=== PATIENT | female | born 1950 | race Caucasian/White ===

== ENCOUNTER 2023-11-03 12:40 | Outpatient (CLI) | payer OTHER ==
[~2023-11-03 12:40] MED LIST: ACET-2006 PO; BACL-11 PO; CHOL20004 PO; LYR75C PO; MAGN250T29 PO
== END 2023-11-04 02:43 | disposition home or self-care (01) ==
LOC: MRI 12:40
PROVIDERS: ATTEND Pediatrics Sports Medicine
DX: M19.011 Primary osteoarthritis, right shoulder (principal); M75.81 Other shoulder lesions, right shoulder; M25.511 Pain in right shoulder; M25.512 Pain in left shoulder; M75.22 Bicipital tendinitis, left shoulder; M47.22 Other spondylosis with radiculopathy, cervical region; R51.9 Headache, unspecified; M79.10 Myalgia, unspecified site; M54.2 Cervicalgia
CPT/HCPCS: 73221

== ENCOUNTER 2025-01-24 07:45 | Emergency (ER) | payer MEDICARE, MEDICAID ==
[~2025-01-24] VITALS: Ht 170.2 cm; Wt 72.7 kg
[2025-01-24 08:01] VITALS: BP 172/106; PULSE 75; O2SAT 97
--- NOTE | 2025-01-24 09:34 | Physician Documentation ---
History of Present Illness ~ Chief Complaint: Ankle pain Stated Complaint: ANKLE PAIN Time Seen by MD: 08:38 Primary Medical Doctor: ELISA HPI 74-year-old female presents to the ED with a complaint of left ankle pain to after rolling her ankle this morning. She is able to walk on her heel but not on the ball of her foot. Day of Onset: Jan 24, 2025 Tetanus witin 5 years: Yes Medication Reconciliation Allergies: Coded Allergies: codeine (Verified Allergy, Unknown, NAUSEA,HIVES,ITCH, 01/24/25) fentanyl (Verified Allergy, Unknown, NAUSEA/BLACK OUT, 01/24/25) methadone (Verified Allergy, Unknown, NAUSEA, 01/24/25) morphine (Verified Allergy, Unknown, NAUSEA/BLACK OUT, 01/24/25) Scheduled Baclofen (Baclofen), 1 TAB PO DAILY, (Reported) Cholecalciferol (Vitamin D), 1 TAB PO DAILY, (Reported) Magnesium Oxide (Magnesium), 1 TAB PO DAILY, (Reported) Scheduled PRN Acetaminophen (Acetaminophen Extra Strength), 3 TAB PO PRN PRN for pain, (Reported) Pregabalin (LYRICA capsule), 2 CAP PO DAILY PRN for PRN, (Reported) Past Medical History Past Medical History: GERD, Chronic Back Pain, Osteopenia Past Surgical History: orthopedic surgeries Alcohol Use: Occasionally Drug Use: none Lives with: Alone Lives In: Home Occupation: disabled Review of Systems All Other Systems at this time: Reviewed and Negative ROS As stated above in the HPI, otherwise all systems are reviewed and negative. Physical Exam Vital Signs: Temperature: 98.0, Source: Temporal, Heart Rate: 75, Respiratory Rate: 18, BP: 172/106, Pulse Oximetry: 97, Weight: 72.730 Physical Exam General: Alert, no apparent distress. t. Extremities: Moderate swelling in his developing ecchymosis on the lateral aspect of the left ankle, no deformity Neurologic: Oriented x4. Psychiatric: Normal mood and affect. Skin: Normal color, warm and dry. No edema, no ecchymosis. Progress Results/Orders Results/Orders Orders - HARISH HALEY NP Ortho Orders (01/24/25 ) Completed Orders - HARISH HALEY NP Ketorolac Trometh 15mg/Ml Vial (Toradol (01/24/25 09:35) Vital Signs 01/24/25 08:01 Temp 98.0 Pulse 75 Resp 18 B/P (MAP) 172/106 Pulse Ox 97 Medical Decision Making Findings Patient presents with a suspected ankle sprain. did not Appreciate any signs of acute fracture in her x-ray. The patient to utilize the brace given and take i buprofen as directed Ankle Diff Dx:Considerations: Include: Abrasion, Arthritis, Contusion, DJD, Fracture-metatarsal, Fracture-fibula, Fracture-tarsal, Fracture-tibia, Gout, Hematoma, Laceration, Malunion, Neurovascular injury, Nonunion, Open fracture, Osteomyelitis, Rheumatoid arthritis, Sprain, Septic, Ulcer, Other Departure Disposition: HOME / SELF CARE / HOMELESS Impression: Primary Impression: Sprain of ankle Condition: Stable Discharge Instructions: Ankle Sprain Additional Instructions: Use the ankle brace provided and take tylenol as directed Referrals: NO PRIMARY CARE PROVIDER (PCP) Signature Scribe Signature: h Attestation: The note accurately reflects work and decisions made by me.Harish Stringer NP 01/24/25 09:33 HARISH HALEY NP Jan 24, 2025 09:34
[2025-01-24 09:58] VITALS: RESP 16
[2025-01-24] MEDS: ketorolac trometh 15mg/ml vial 15 MG/ML ML IM ONE (09:58)
[2025-01-24 10:04] VITALS: TEMP 98
--- NOTE | 2025-01-24 11:52 | RADIOLOGY REPORT ---
EXAM: DI ANKLE, COMPLETE(3VW MIN) CLINICAL INDICATION: LT.ANKLE PAIN ROLLING IT TECHNIQUE: DI ANKLE, COMPLETE(3VW MIN) Comparison: None FINDINGS/IMPRESSION: There is no evidence of acute fracture or dislocation. The visualized joint space is well maintained. The alignment is anatomical. There is no radiopaque foreign body.
== END 2025-01-24 10:05 | disposition home or self-care (01) ==
LOC: ER 07:46
DX: S93.402A Sprain of unspecified ligament of left ankle, initial encounter (principal); Z88.5 Allergy status to narcotic agent; X58.XXXA Exposure to other specified factors, initial encounter; Y93.89 Activity, other specified; Y92.89 Other specified places as the place of occurrence of the external cause; Y99.8 Other external cause status
CPT/HCPCS: 29540; 73610; 96372; 99284; J1885; L1930

== ENCOUNTER 2025-02-14 14:00 | Outpatient (CLI) | payer MEDICARE, MEDICAID ==
--- NOTE | 2025-02-14 18:41 | RADIOLOGY REPORT ---
PROCEDURE: MR MRI LUMBAR SPINE INDICATION: OTHER LOW BACK PAIN//RIGHT HIP PAIN Exam Date: 02/14/2025 03:44 PM COMPARISON: None TECHNIQUE: MRI lumbar spine without intravenous contrast. FINDINGS: Grade 1 retrolisthesis of L1 on L2. There are degenerative endplate changes including modic endpla te changes with anterior and lateral osteophytes throughout the lumbar spine. The visualized distal s stephanie cord and conus medullaris are within normal limits. The conus medullaris appears to terminate within normal limits. The visualized retroperitoneal and paraspinal soft tissues are unremarkable. The following axial levels are detailed below: T12-L1: There is a mild circumferential disc bulge. No significant central canal or neuroforaminal s tenosis. L1-L2: There is a mild circumferential disc bulge. No significant central canal or neuroforaminal s tenosis. L2-L3: There is a mild circumferential disc bulge. No significant central canal or neuroforaminal s tenosis. L3-L4: There is a moderate circumferential disc bulge complicated by facet arthropathy associated w ith mild to moderate right neuroforaminal stenosis. No significant central canal stenosis. L4-L5: There is a mild circumferential disc bulge. No significant central canal or neuroforaminal s tenosis. L5-S1: There is a moderate circumferential disc bulge complicated by facet arthropathy associated wi th mild to moderate bilateral neuroforaminal stenosis. No significant central canal stenosis. IMPRESSION: 1. Mild degenerative disease. No significant central canal stenosis. Neural foraminal stenosis as a bennie. HS:Y
--- NOTE | 2025-02-15 06:16 | RADIOLOGY REPORT ---
CLINICAL INDICATION: OTHER LOW BACK PAIN//RIGHT HIP PAIN COMPARISON: None. TECHNIQUE: Multiplanar, multi-sequence MRI of the right hip was performed without intravenous contrast. Contralateral hip is included on the large [id number] images. Contrast: None INTERPRETATION: Joint space: There is no right effusion. Contralateral hip grossly unremarkable. Bones and articular cartilage: There is no fracture, marrow replacing lesion or avascular necrosis. The alignment is normal. There is right hip joint space narrowing. No full-thickness chondral defect but there is diffuse chondral thinning on both sides of the right hip joint. Mild subchondral bone marrow edema in the acetabulum. Tendons, muscles and bursae: There is no tendon tear. Thickening of the bilateral common hamstring tendons on the axial T2 weighted images suggesting tendinosis. Regional muscles are normal in bulk an d signal characteristics. No bursitis. Acetabular labrum: Chronic tear of the anterior superior right acetabular labrum. IMPRESSION: 1. Mild right hip osteoarthritis. 2. Mild tendinosis of the bilateral common hamstring tendons. No tendon tear. 3. Chronic tear of the anterior superior right acetabular labrum.
== END 2025-02-14 23:00 | disposition home or self-care (01) ==
LOC: MRI02 14:00
PROVIDERS: ATTEND Nurse Practitioner Adult Health
DX: S73.191A Other sprain of right hip, initial encounter (principal); M25.551 Pain in right hip; M54.59 Other low back pain; R20.2 Paresthesia of skin; M16.11 Unilateral primary osteoarthritis, right hip; M67.853 Other specified disorders of tendon, right hip; X58.XXXA Exposure to other specified factors, initial encounter; Y93.89 Activity, other specified; Y92.89 Other specified places as the place of occurrence of the external cause; Y99.8 Other external cause status; R60.0 Localized edema; M25.851 Other specified joint disorders, right hip; M51.379 Other intervertebral disc degeneration, lumbosacral region without mention of lumbar back pain or lower extremity pain; M48.07 Spinal stenosis, lumbosacral region; M47.817 Spondylosis without myelopathy or radiculopathy, lumbosacral region; M51.34 Other intervertebral disc degeneration, thoracic region; M25.78 Osteophyte, vertebrae
CPT/HCPCS: 72148; 73721